=== PATIENT | female | born 1995 | race African-American/Black ===

== ENCOUNTER 2017-05-01 12:31 | Emergency (ER) | payer OTHER ==
[2017-05-01] MEDS ORDERED: Ketorolac INJ* 60 MG/2 ML VIAL IM ONE (13:54)
[2017-05-01] MEDS ORDERED: Diazepam TAB(*) 2 MG PO ONE (13:55)
--- NOTE | 2017-05-01 14:05 | ED ---
Neck Pain - HPI Summary HPI Summary: Pt here w/ Rt sided neck pain and stiffness today. Was stretching on the toilet while urinating and neck got stuck in Lt sided rotation. Painful to try to move and to lift arms beyond 45 degrees flexion. This has happened intermittently since the age of 16 y.o. She initially had cervical spine XR which was normal per mom. Denies GUO, fever, chills, numbness, tingling, weakness into the extremities. No illness leading up to this and no acute injury. Has had "shots" at PCP's office in the past to help break spasm. She tried flexeril prior to arrival w/o relief - has not had NSAID's. - History of Current Complaint Chief Complaint: EDNeckComplaint Stated Complaint: NECK PAIN Time Seen by Provider: 05/01/17 13:13 Hx Obtained From: Patient, Family/Film Editor Supervisor - mom Hx Last Menstrual Period: 09/01/16 Pain Intensity: 10 - Allergies/Home Medications Allergies/Adverse Reactions: Allergies Allergy/AdvReac Type Severity Reaction Status Date / Time No Known Allergies Allergy Verified 09/02/16 16:20 PMH/Surg Hx/FS Hx/Imm Hx Previously Healthy: Yes Endocrine/Hematology History: Denies: Hx Diabetes, Hx Thyroid Disease Cardiovascular History: Denies: Hx Hypertension Respiratory History: Reports: Hx Asthma Denies: Hx Chronic Obstructive Pulmonary Disease (COPD) GI History: Denies: Hx Ulcer, Other GI Disorders History: Reports: Other Problems/Disorders - ovarian cysts Musculoskeletal History: Reports: Other Musculoskeletal History - Rt sided cervical strain, started at 16 y.o. Neurological History: Denies: Hx Migraine Psychiatric History: Denies: Hx Anxiety - Surgical History Surgery Procedure, Year, and Place: nose surgery Infectious Disease History: No Infectious Disease History: Denies: Hx Clostridium Difficile, Hx Hepatitis, Hx Human Immunodeficiency Virus (HIV), Hx of Known/Suspected MRSA, Hx Shingles, Hx Tuberculosis, Hx Known/ Suspected VRE, Hx Known/Suspected VRSA, History Other Infectious Disease, Traveled Outside the [place] in Last 30 Days - Family History Known Family History: Positive: Cardiac Disease, Other - mom michael's, ovarian cysts, clotting issues, cva, cancer - Social History 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 Lives: With Family Alcohol Use: Occasionally Hx Substance Use: No Substance Use Type: Reports: None Hx Tobacco Use: No Smoking Status (MU): Never Smoked Tobacco Review of Systems Constitutional: Negative Negative: Fever, Chills, Fatigue Eyes: Negative Negative: Photophobia, Blurred Vision, Diplopia Negative: Sore Throat Negative: Chest Pain Negative: Shortness Of Breath Negative: Vomiting, Nausea Positive: no symptoms reported Musculoskeletal: Other - see HPI Negative: Headache, Weakness, Paresthesia, Numbness Psychological: Normal All Other Systems Reviewed And Are Negative: Yes Physical Exam Triage Information Reviewed: Yes Vital Signs On Initial Exam: Initial Vitals Temp Pulse Resp BP Pulse Ox 97.8 F 65 15 103/68 99 05/01/17 13:04 05/01/17 13:04 05/01/17 13:04 05/01/17 13:04 05/01/17 13:04 Vital Signs Reviewed: Yes Appearance: Positive: Well-Appearing, Well-Nourished, Pain Distress - mild - pt resting on stretcher with head rotated facing Left - no overlying skin changes Skin: Positive: Warm, Dry Head/Face: Positive: Normal Head/Face Inspection Eyes: Positive: Normal, EOMI, RUBI, Conjunctiva Clear ENT: Positive: Hearing grossly normal, Pharynx normal - mucosa moist Neck: Positive: Supple, Tenderness @ - Rt side paracervical mm Respiratory/Lung Sounds: Positive: Breath Sounds Present Cardiovascular: Positive: Normal, RRR, Pulses are Symmetrical in both Upper and Lower Extremities Musculoskeletal: Positive: Strength/ROM Intact - phalanges, wrists, elbows, Limited @ - cervical spine and pain w/ B/L shoulder flexion past 45 degrees - pain produced in Rt side of neck Neurological: Positive: Normal, Sensory/Motor Intact, Alert, Oriented to Person Place, Time, CN Intact II-III Psychiatric: Positive: Normal Diagnostics - Vital Signs Vital Signs Temp Pulse Resp BP Pulse Ox 05/01/17 13:37 97.9 F 49 16 119/64 100 05/01/17 13:04 97.8 F 65 15 103/68 99 - Laboratory Lab Statement: Any lab studies that have been ordered have been reviewed, and results considered in the medical decision making process. Neck Course/Dx - Diagnoses Provider Diagnoses: Cervical strain, acute Discharge - Discharge Plan Condition: Stable Disposition: HOME Patient Education Materials: Cervical Strain (ED) Forms: *Work Release Referrals: Gayle Lopez MD [Primary Care Provider] - Additional Instructions: You appear to have acute, recurrent neck muscle strain today. You may have an underlying issue here that continues to cause this problem. Stay hydrated and take ibuprofen 600mg every 6 hours with food for next 24-48 hours. You may also try heat with gentle stretch followed by ice. Follow-up with PCP as you may benefit from referral to physical therapy, manager [place]ina, etc to address an underlying tissue injury if one is present. *If you develop fever, chills, headache, vomiting, arm weakness/numbness, return to ED
[2017-05-01 15:36] VITALS: BP 114/62
== END 2017-05-01 15:37 | disposition home or self-care (01) ==
LOC: ED 12:31
DX: S16.1XXA Strain of muscle, fascia and tendon at neck level, initial encounter (principal); M54.2 Cervicalgia; X58.XXXA Exposure to other specified factors, initial encounter; Y93.9 Activity, unspecified; Y92.9 Unspecified place or not applicable
CPT/HCPCS: 96372; 99282; A9270-GY; J1885

== ENCOUNTER 2018-09-16 13:00 | Emergency (ER) | payer OTHER ==
[2018-09-16 13:34] VITALS: BP 112/56
--- NOTE | 2018-09-16 13:55 | UC ---
Upper Extremity HPI - HPI Summary HPI Summary: 22 year old female presents with left index finger pain after accidentally shutting in a car door earlier today. Reports some bleeding around the finger nail. Tetanus up to date. - History of Current Complaint Chief Complaint: UCUpperExtremity Stated Complaint: FINGER INJURY Time Seen by Provider: 09/16/18 13:32 Hx Obtained From: Patient Hx Last Menstrual Period: unknown ?: No Onset/Duration: Sudden Onset, Lasting Hours Severity Currently: Severe Pain Intensity: 10 Character: Aching, Throbbing Aggravating Factor(s): Other - Touch Alleviating Factor(s): Nothing Associated Signs And Symptoms: Positive: Swelling, Bruising. Negative: Numbness /Tingling - Allergies/Home Medications Allergies/Adverse Reactions: Allergies Allergy/AdvReac Type Severity Reaction Status Date / Time No Known Allergies Allergy Verified 09/02/16 16:20 Home Medications: Home Medications raNITIdine HCl [Ranitidine HCl] 150 mg PO DAILY WITH MEAL 09/16/18 [History Confirmed 09/16/18] PMH/Surg Hx/FS Hx/Imm Hx Previously Healthy: Yes Respiratory History: Asthma GI/ History: Gastroesophageal Reflux Psychological History: Depression - Surgical History Surgical History: Yes Surgery Procedure, Year, and Place: nose surgery - Family History Known Family History: Positive: Cardiac Disease, Other - mom michael's, ovarian cysts, clotting issues, cva, cancer - Social History Occupation: Student Lives: With Family Alcohol Use: Occasionally Substance Use Type: None Smoking Status (MU): Never Smoked Tobacco - Immunization History Most Recent Influenza Vaccination: never Most Recent Tetanus Shot: up to date Most Recent Pneumonia Vaccination: never Vaccination Up to Date: Yes Review of Systems All Other Systems Reviewed And Are Negative: Yes Constitutional: Negative: Fever, Chills Skin: Positive: Bruising Motor: Negative: Weakness Neurovascular: Negative: Decreased Sensation Musculoskeletal: Positive: Other: - See HPI Is Patient Immunocompromised?: No Physical Exam - Summary Physical Exam Summary: GENERAL APPEARANCE: Well developed, well nourished, alert and cooperative, and appears to be in no acute distress. CARDIAC: Normal S1 and S2. No S3, S4 or murmurs. Rhythm is regular. There is no peripheral edema, cyanosis or pallor. Extremities are warm and well perfused. Capillary refill is less than 2 seconds. LUNGS: Clear to auscultation and percussion without rales, rhonchi, wheezing or diminished breath sounds. MUSKULOSKELETAL: ROM intact to all extremities. No joint erythema or tenderness. Normal muscular development.Tenderness and swelling to distal left index finger. NEUROLOGICAL: Awake and alert. Strength and sensation symmetric and intact throughout. SKIN: General skin exam reveals normal color, texture and turgor. Small superficial laceration to the lateral aspect distal index finger near the base of the nail without nail involvement. Wound margins well approximated. Bleeding controlled. There is also small amount of bleeding from under the tip of finger nail. There is a large subungual hematoma present. Vital Signs: Initial Vital Signs Temp 98.6 F 09/16/18 13:30 Pulse 57 09/16/18 13:30 Resp 18 09/16/18 13:30 BP 112/56 09/16/18 13:30 Pulse Ox 98 09/16/18 13:30 Diagnostics - Radiology No standard instances Radiology Interpretation Completed By: ED Physician - + tuft fracture distal phalanx left index finger, Radiologist Summary of Radiographic Findings: Patient Name: SOPHIE FAYE Medical Record#: [id number]. Ordering Physician: Scar Cohen NP Acct.#: [id number]. : 1995 Age: 22 Sex: F Location: [facility]. Exam Date: 1331 ADM Status: REG ER. Order Information: FINGER LEFT 2ND (INDEX). Accession Number: [id number]. CPT: 04627. HISTORY: pain s/p shut in car door. COMPARISONS: None. VIEWS: 3 , Frontal, lateral, and oblique views of the second digit of the left hand. FINDINGS: BONE DENSITY: Normal. BONES: There is a comminuted fracture of the tuft of the distal phalanx of the second. digit. JOINTS: There is no arthropathy. ALIGNMENT: There is no dislocation. SOFT TISSUES: Unremarkable. OTHER FINDINGS: None. IMPRESSION: COMMINUTED FRACTURE OF THE TUFT OF THE DISTAL PHALANX OF THE SECOND DIGIT. Upper Extremity Course/Dx - Course Course Of Treatment: 22 year old female presents with left index finger pain after accidentally shutting in a car door earlier today. Reports some bleeding around the finger nail. Tetanus up to date. Exam reveals tenderness and mild swelling to distal lef index finger. Superficial laceration to lateral aspect near base of finger nail but no nail involvement. Wound margins well approximated. There is also a large subungual hematoma with blood draining from end of finger nail. X-ray shows a comminuted tuft fracture of distal phalanx. The laceration was cleansed well with saline and chlorhexadine. The laceration was very small and wound margins well approximated therefore no repair required. Discussed risks and benefits of performing a trephination of the nail to relieve the subungual hematoma however patient elects not to have done at this time. Wounds bandaged and she was placed in a finger splint. Follow up with orthopedic surgery within 7 days. Warning symptoms reviewed. Verbalizes understanding. - Differential Dx/Diagnosis Differential Diagnosis/HQI/PQRI: Contusion, Fracture (Open), Fracture (Closed), Laceration Provider Diagnosis: Closed fracture of tuft of distal phalanx of finger, Subungual hematoma of left index finger, Laceration of finger without damage to nail Discharge - Sign-Out/Discharge Documenting (check all that apply): Patient Departure All imaging exams completed and their final reports reviewed: Yes - Discharge Plan Condition: Stable Disposition: HOME Prescriptions: Naproxen [Naproxen 500 mg tab] 500 mg PO Q12HR PRN #30 tablet PRN Reason: Pain Patient Education Materials: Subungual Hematoma (ED), Finger Fracture (ED), Finger Laceration (ED) Referrals: Gayle Lopez MD [Primary Care Provider] - Mary Jason MD [Medical Doctor] - 1 Week (Call for appointment.) Additional Instructions: The x-ray performed in the clinic today showed a fracture of the end of finger. You also have a collection of blood under the finger nail called a subungual hematoma. Be aware that with this type of injury there is a chance you may lose the finger nail. If this happens it will take several weeks to months for it to regrow. Wear the splint at all times until you follow up with orthopedic surgery. Keep the splint dry. You should wash the wound with a mild soap and water twice a day or anytime it becomes soiled to prevent infection. Cover with a bandage to keep clean. Use naproxen 1 tab every 12 hours as needed for pain. Take with food to avoid upset stomach. Follow up with Dr Jason, orthopedic surgery, in 7 days for evaluation and treatment. Call for appointment. Seek immediate medical attention if you develop fever greater than 100.5 F, have pain that is not managed with pain medication, redness that spreads, increased swelling of the finger, pus draining from the wound, or any worsening of symptoms. - Billing Disposition and Condition Condition: STABLE Disposition: Home Images Hands: 1 - Superficial laceration <0.5 cm with well approximated wound margins and bleeding controlled. No nail involvement.
== END 2018-09-16 14:45 | disposition home or self-care (01) ==
LOC: UCEAST 13:00
DX: K21.9 Gastro-esophageal reflux disease without esophagitis (principal); S62.631A Displaced fracture of distal phalanx of left index finger, initial encounter for closed fracture; S61.211A Laceration without foreign body of left index finger without damage to nail, initial encounter; W23.0XXA Caught, crushed, jammed, or pinched between moving objects, initial encounter; Y92.9 Unspecified place or not applicable
CPT/HCPCS: 73140; 99212; G0463

== ENCOUNTER 2019-01-06 22:14 | Emergency (ER) | payer OTHER ==
[2019-01-07] MEDS ORDERED: predniSONE TAB* 20 MG PO ONE (00:08)
[2019-01-07] MEDS ORDERED: hydrOXYzine HCL TAB* 50 MG PO ONE (00:08)
--- NOTE | 2019-01-07 00:16 | ED ---
Allergic Reaction/Systemic - HPI Summary HPI Summary: A 23 y/o female presents to [facility] with a chief complaint of a possible allergic reaction since 01/04/19. She reports that her hives have been intermittent. She reports that yesterday her eyelids and lips were swollen. She was prescribed an epi pen and steroids, but did not pick remover her steroids yet. She reports taking Benadryl and using calamine lotion. Per triage note the patient rates her pain as a 0/10 but c/o itchiness from her hives all over her body. 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 - Allergies/Home Medications Allergies/Adverse Reactions: Allergies Allergy/AdvReac Type Severity Reaction Status Date / Time No Known Allergies Allergy Verified 01/07/19 00:00 PMH/Surg Hx/FS Hx/Imm Hx Endocrine/Hematology History: Denies: Hx Diabetes, Hx Thyroid Disease Cardiovascular History: Denies: Hx Hypertension Respiratory History: Reports: Hx Asthma Denies: Hx Chronic Obstructive Pulmonary Disease (COPD) GI History: Denies: Hx Ulcer, Other GI Disorders History: Reports: Other Problems/Disorders - ovarian cysts Musculoskeletal History: Reports: Other Musculoskeletal History - Rt sided cervical strain, started at 16 y.o. Neurological History: Denies: Hx Migraine Psychiatric History: Denies: Hx Anxiety - Surgical History Surgery Procedure, Year, and Place: nose surgery - Immunization History Date of Tetanus Vaccine: utd Date of Influenza Vaccine: fall 2017 Infectious Disease History: No Infectious Disease History: Denies: Hx Clostridium Difficile, Hx Hepatitis, Hx Human Immunodeficiency Virus (HIV), Hx of Known/Suspected MRSA, Hx Shingles, Hx Tuberculosis, Hx Known/ Suspected VRE, Hx Known/Suspected VRSA, History Other Infectious Disease, Traveled Outside the [place] in Last 30 Days - Family History Known Family History: Positive: Cardiac Disease, Other - mom michael's, ovarian cysts, clotting issues, cva, cancer - Social History Alcohol Use: Rare Hx Substance Use: No Substance Use Type: Reports: Marijuana Substance Use Comment - Amount & Last Used: daily Hx Tobacco Use: No Smoking Status (MU): Never Smoked Tobacco Review of Systems Eyes: Other - Positive: eyelid 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 GENERAL: Patient is a well-developed and nourished FEMALE who is lying comfortable in the stretcher. Patient is not in any acute respiratory distress. HEAD AND FACE: No signs of trauma. No ecchymosis, hematomas or skull depressions. No sinus tenderness. EYES: PERRLA, EOMI x 2, No injected conjunctiva, no nystagmus. EARS: Hearing grossly intact. Ear canals and tympanic membranes are within normal limits. MOUTH: Oropharynx within normal limits. NECK: Supple, trachea is midline, no adenopathy, no JVD, no carotid bruit, no c- spine tenderness, neck with full ROM. CHEST: Symmetric, no tenderness at palpation LUNGS: Clear to auscultation bilaterally. No wheezing or crackles. CVS: Regular rate and rhythm, S1 and S2 present, no murmurs or gallops appreciated. ABDOMEN: Soft, non-tender. No signs of distention. No rebound no guarding, and no masses palpated. Bowel sounds are normal. EXTREMITIES: FROM in all major joints, no edema, no cyanosis or clubbing. NEURO: Alert and oriented x 3. No acute neurological deficits. Speech is normal and follows commands. SKIN: Diffuse maculopapular rash with welts Triage Information Reviewed: Yes Vital Signs On Initial Exam: Initial Vitals Temp Pulse Resp BP Pulse Ox 100.3 F 91 14 122/85 100 01/06/19 23:06 01/06/19 23:06 01/06/19 23:06 01/06/19 23:06 01/06/19 23:06 Vital Signs Reviewed: Yes Diagnostics - Vital Signs Vital Signs Temp Pulse Resp BP Pulse Ox 01/06/19 23:06 100.3 F 91 14 122/85 100 - Laboratory Lab Statement: Any lab studies that have been ordered have been reviewed, and results considered in the medical decision making process. Allergic Reaction Course/Dx - Course Course Of Treatment: A 23 y/o female presents to [facility] with a chief complaint of a possible allergic reaction since 01/04/19. She reports that her hives have been intermittent. She reports that yesterday her eyelids and lips were swollen. She was prescribed an epi pen and steroids, but did not pick remover her steroids yet. She reports taking Benadryl and using calamine lotion. Per triage note the patient rates her pain as a 0/10 but c/o itchiness from her hives all over her body. The physical exam revealed a diffuse maculopapular rash with welts. In the ED course the patient was given 60 mg Prednisone PO and 50 mg Hyhdroxyzine PO. The patient will be discharged with prescriptions for Atarax and Deltasone. THe patient is agreeable with this plan. - Diagnoses Provider Diagnoses: Allergic reaction Discharge - Sign-Out/Discharge Documenting (check all that apply): Patient Departure - DC Patient Received Moderate/Deep Sedation with Procedure: No - Discharge Plan Condition: Stable Disposition: HOME Prescriptions: hydrOXYzine HCL TAB* [Atarax TAB 50 MG *] 50 mg PO TID PRN #20 tab PRN Reason: Itching predniSONE TAB* [Deltasone TAB*] 50 mg PO DAILY #5 tab Referrals: Gayle Lopez MD [Primary Care Provider] - (1-2 days) Additional Instructions: RETURN TO THE EMERGENCY DEPARTMENT FOR CHANGING OR WORSENING SYMPTOMS. FOLLOW UP WITH PCP IN 1-2 DAYS. - Billing Disposition and Condition Condition: STABLE Disposition: Home - Attestation Statements Document Initiated by Sergio: Yes Documenting Rebecaibe: Efrain Li Provider For Whom Sergio is Documenting (Include Credential): Inga Davis MD Scribyane Attestation: Efrain Martinez, scribed for Inga Davis MD on 01/07/19 at 0614. Scribe Documentation Reviewed: Yes Provider Attestation: The documentation as recorded by the Efrain dyson accurately reflects the service I personally performed and the decisions made by me, Inga Davis MD Status of Scribe Document: Viewed
[2019-01-07] MEDS ORDERED: EPINEPHRINE 1 MG/ML 1 ML VIAL IM ONE (01:03)
[2019-01-07 01:08] VITALS: BP 0/0
== END 2019-01-07 01:07 | disposition home or self-care (01) ==
LOC: ED 22:14
DX: T78.40XA Allergy, unspecified, initial encounter (principal); R21 Rash and other nonspecific skin eruption; R60.9 Edema, unspecified
CPT/HCPCS: 96372; 99282; A9270-GY; J7512